=== PATIENT | female | born 1945 | race Caucasian/White ===

== ENCOUNTER 2017-10-19 18:18 | Emergency (ER) | payer OTHER ==
[~2017-10-19] VITALS: Ht 149.9 cm; Wt 75.0 kg
[2017-10-19 20:45] VITALS: BP 00/00
== END 2017-10-19 20:56 | disposition home or self-care (01) ==
LOC: EME 18:18
DX: S83.91XA Sprain of unspecified site of right knee, initial encounter (principal); X50.1XXA Overexertion from prolonged static or awkward postures, initial encounter; M17.11 Unilateral primary osteoarthritis, right knee; Z88.0 Allergy status to penicillin
CPT/HCPCS: 73564; 99281; 99284